=== PATIENT | female | born 1980 ===

== ENCOUNTER 2019-06-14 22:49 | Emergency (ER) | payer SELFPAY ==
[~2019-06-14] VITALS: Ht 165.1 cm; Wt 67.0 kg
[2019-06-14 23:15] VITALS: BP 154/120
== END 2019-06-15 00:04 | disposition left against medical advice (07) ==
LOC: ED 23:58
DX: F15.10 Other stimulant abuse, uncomplicated (principal); R00.0 Tachycardia, unspecified
CPT/HCPCS: 71046; 93005; 99283